=== PATIENT | female | born 1950 | race Caucasian/White ===

== ENCOUNTER 2017-04-14 10:12 | Emergency (ER) | payer MEDICARE, OTHER ==
[2017-04-14 11:02] LABS: BILIRUBIN NEGATIVE (NEGATIVE); BLOOD NEGATIVE Ery/uL (NEGATIVE); CLARITY CLEAR (CLEAR); COLOR YELLOW (YELLOW); GLUCOSE (U) NORMAL (NORMAL); KETONE (U) NEGATIVE (NEGATIVE); LEUKOCYTES NEGATIVE Leu/uL (NEGATIVE); NITRITE NEGATIVE (NEGATIVE); PROTEIN NEGATIVE (NEGATIVE); UROBILINOGEN 0.2 mg/dL (0.2-1.0)
[2017-04-14 11:41] LABS: BASOPHIL 0.4 % (0-2); HCT 40.6 % (37.0-47.0); HGB 13.4 g/dl (12.5-16.0); LYMPHOCYTE 29.1 % (15-48); MCH 27.5 pg (25.0-31.0); MCV 83.4 fL (78.0-100.0); MONOCYTE 8.7 % (0-12); MPV 11.4 fL (6.0-9.5); NEUTROPHIL 60.8 % (41-80); PLT 250 K/uL (150-400); RBC 4.87 M/uL (4.20-5.40); RDW 15.2 % (11.5-14.0); WBC 6.9 K/uL (4.0-10.5)
[2017-04-14 11:56] LABS: ALBUMIN 4.2 g/dL (3.4-4.8); BILIRUBIN - TOTAL 0.4 mg/dL (0.1-1.0); CREATININE 0.7 mg/dL (0.5-1.0); POTASSIUM 3.7 mmol/L (3.5-5.1); TOTAL PROTEIN 7.2 g/dL (6.4-8.3)
== END 2017-04-14 13:21 | disposition home or self-care (01) ==
LOC: FER 10:12
PROVIDERS: Internal Medicine
DX: R10.2 Pelvic and perineal pain (principal); R35.0 Frequency of micturition; M54.5 Low back pain; M19.90 Unspecified osteoarthritis, unspecified site; Z88.1 Allergy status to other antibiotic agents; Z88.5 Allergy status to narcotic agent; Z88.8 Allergy status to other drugs, medicaments and biological substances; Z91.041 Radiographic dye allergy status; Z79.51 Long term (current) use of inhaled steroids; Z79.899 Other long term (current) drug therapy
CPT/HCPCS: 36415; 80053; 81003; 85025; 93005; C9113; J2405; J2765

== ENCOUNTER 2021-04-07 09:28 | Day surgery (SDCO) | payer MEDICARE, OTHER ==
[~2021-04-07] VITALS: Ht 162.6 cm; Wt 72.7 kg
[~2021-04-07 09:28] MED LIST: AMLODIPINE BESY10 MG PO; ASCORBIC ACID500 MG PO; BIOTIN10 MG PO; CENTRUM SILVER1 EAC4 PO; CLONAZEPAM0.5 MG PO; FLONASE ALLER15.8 ML; HCTZ25 MG PO; IBUPROFEN800 M1 PO; LEFLUNOMIDE20 MG PO; LOVAZA1 GM PO; NEXIUM20 MG PO; OS-CAL500 MG PO; POTASSIUM CHLO10 ME1 PO; PROBIOTIC1 EAC1 PO; RAMIPRIL5 MG PO; VITAMIN D310 MC3 PO; ZINC30 MG PO; ZYRTEC10 M3 PO
[2021-04-07 10:15] LABS: HCT 38.7 % (37.0-47.0); HGB 12.5 g/dl (12.5-16.0); MCH 28.9 pg (25.0-31.0); MCHC 32.3 g/dL (32.0-36.0); MCV 89.6 fL (78.0-100.0); RBC 4.32 M/uL (4.20-5.40); RDW 14.8 % (11.5-14.0); WBC 4.8 K/uL (4.0-10.5)
[2021-04-07 10:25] LABS: BUN/CREAT RATIO (CALC) 18.9 RATIO; CREATININE 0.74 mg/dL (0.51-0.95); POTASSIUM 4.3 mmol/L (3.5-5.1)
[2021-04-07] MEDS ORDERED: PERCOCET 5-3251 EACH PO (12:47)
[2021-04-08] MEDS ORDERED: NORCO 5-325 TA1 EACH PO (08:53)
--- NOTE | 2021-04-08 11:18 | NUR ---
JAYY WILL ACCEPT PT. OFFICE NUMBER IS [phone]. REFERRAL ENTERED THROUGH [facility].
--- NOTE | 2021-04-08 13:53 | NUR ---
04/08/21 Ms. Matos had a bilateral masectomy. She was educated to the [facility].
== END 2021-04-08 12:49 | disposition home health service (06) ==
LOC: FAS 09:28 → FIS 10:00 → EDSTATUS 10:00 → FMS 18:38
PROVIDERS: ADMIT Surgery
DX: C50.411 Malignant neoplasm of upper-outer quadrant of right female breast (principal); D05.12 Intraductal carcinoma in situ of left breast; I25.10 Atherosclerotic heart disease of native coronary artery without angina pectoris; I10 Essential (primary) hypertension; M81.0 Age-related osteoporosis without current pathological fracture; K21.9 Gastro-esophageal reflux disease without esophagitis; M19.90 Unspecified osteoarthritis, unspecified site; Z20.822 Contact with and (suspected) exposure to COVID-19; Z17.0 Estrogen receptor positive status [ER+]; R41.0 Disorientation, unspecified; Z98.890 Other specified postprocedural states; Z88.5 Allergy status to narcotic agent; Z88.2 Allergy status to sulfonamides; Z88.8 Allergy status to other drugs, medicaments and biological substances; Z91.041 Radiographic dye allergy status; Z79.899 Other long term (current) drug therapy; Z96.651 Presence of right artificial knee joint; Z98.51 Tubal ligation status
CPT/HCPCS: 36415; 80048; 88341; 88342; A9541; C9113; G0378; J0360; J1170; J2250; J2405; J2704; J2710; J3010; J7120

== ENCOUNTER 2021-04-29 14:43 | Emergency (ER) | payer MEDICARE, OTHER ==
[~2021-04-29 14:43] MED LIST changes: +NORCO 5-325 TA1 EACH PO; +PERCOCET 5-3251 EACH PO
[2021-04-29] MEDS ORDERED: VIBRAMYCIN100 MG PO (17:18)
== END 2021-04-29 18:35 | disposition home or self-care (01) ==
LOC: FER 14:43
DX: T81.41XA Infection following a procedure, superficial incisional surgical site, initial encounter (principal); N61.0 Mastitis without abscess; Z90.13 Acquired absence of bilateral breasts and nipples; Z88.5 Allergy status to narcotic agent; Z88.8 Allergy status to other drugs, medicaments and biological substances; Z91.041 Radiographic dye allergy status; Z88.1 Allergy status to other antibiotic agents; Y83.6 Removal of other organ (partial) (total) as the cause of abnormal reaction of the patient, or of later complication, without mention of misadventure at the time of the procedure
CPT/HCPCS: 99283

== ENCOUNTER 2021-06-05 01:19 | Emergency (ER) | payer MEDICARE, OTHER ==
[~2021-06-05 01:19] MED LIST changes: +VIBRAMYCIN100 MG PO
[2021-06-05 01:59] LABS: BASOPHIL 0.4 % (0-2); EOSINOPHIL 0.1 % (0-7); HGB 14.1 g/dl (12.5-16.0); LYMPHOCYTE 13.5 % (15-48); MCH 27.4 pg (25.0-31.0); MCHC 31.3 g/dL (32.0-36.0); MCV 87.5 fL (78.0-100.0); MONOCYTE 4.2 % (0-12); MPV 11.5 fL (6.0-9.5); NEUTROPHIL 81.3 % (41-80); NRBC 0; PLT 325 K/uL (150-400); RBC 5.14 M/uL (4.20-5.40); RDW 13.7 % (11.5-14.0); WBC 17.7 K/uL (4.0-10.5)
[2021-06-05 02:18] LABS: LACTIC ACID 2.8 mmol/L (0.4-1.9)
[2021-06-05 02:23] LABS: ALBUMIN 3.9 g/dL (3.4-5.0); ALKALINE PHOSHATASE 139 U/L (46-116); ALT 75 U/L (14-59); AST 144 U/L (15-37); BILIRUBIN - TOTAL 0.5 mg/dL (0.2-1.0); BUN 15 mg/dL (7-18); BUN/CREAT RATIO (CALC) 16.7 RATIO; CHLORIDE 102 mmol/L (98-107); CO2 (BICARBONATE) 24 mmol/L (21-32); GLOBULIN (CALCULATION) 4.5 g/dL; GLUCOSE 301 mg/dL (74-106); LIPASE >2250 U/L (73-393); POTASSIUM 3.1 mmol/L (3.5-5.1); TOTAL PROTEIN 8.4 g/dL (6.4-8.2)
== END 2021-06-05 03:43 | disposition other institution (70) ==
LOC: FER 01:19
PROVIDERS: Emergency Medicine
DX: R10.9 Unspecified abdominal pain (principal); R14.0 Abdominal distension (gaseous); I10 Essential (primary) hypertension; Z91.041 Radiographic dye allergy status; Z88.5 Allergy status to narcotic agent; I95.9 Hypotension, unspecified
CPT/HCPCS: 36415; 36600; 71045; 74018; 80053; 82803; 83605; 83690; 85025; J1170; J1335; J2405; J3490; J7030